=== PATIENT | female | born 1960 | race Caucasian/White ===

== ENCOUNTER 2020-09-26 19:04 | Emergency (ER) | payer OTHER ==
[~2020-09-26] VITALS: Ht 167.6 cm; Wt 60.3 kg
[2020-09-26] MEDS ORDERED: IBUPROFEN 600600 M1 PO (20:47)
[2020-09-26] MEDS ORDERED: NORCO5 PO (20:47)
[2020-09-26] MEDS ORDERED: MEDROLDOSEPACK PO (20:47)
[2020-09-26] MEDS ORDERED: ZANAFLEX4 MG PO (20:47)
[2020-09-26 21:07] VITALS: BP 101/54
== END 2020-09-26 21:08 | disposition home or self-care (01) ==
LOC: M.ERS 19:04
DX: M54.41 Lumbago with sciatica, right side (principal); J44.9 Chronic obstructive pulmonary disease, unspecified; F17.210 Nicotine dependence, cigarettes, uncomplicated